=== PATIENT | female | born 1995 | race Caucasian/White ===

== ENCOUNTER 2022-09-20 06:17 | Emergency (ER) | payer OTHER ==
[~2022-09-20] VITALS: Ht 160 cm; Wt 88.6 kg
[2022-09-20 06:31] VITALS: BP 130/78
== END 2022-09-20 07:19 | disposition home or self-care (01) ==
LOC: EMS 06:18
DX: F16.988 Hallucinogen use, unspecified with other hallucinogen-induced disorder (principal); F41.9 Anxiety disorder, unspecified; F12.90 Cannabis use, unspecified, uncomplicated
CPT/HCPCS: 99283; Z7502